=== PATIENT | female | born 1955 | race Caucasian/White ===

== ENCOUNTER 2019-06-11 19:27 | Emergency (ER) | payer MEDICARE, OTHER ==
[~2019-06-11] VITALS: Ht 154.9 cm; Wt 83.9 kg
--- NOTE | 2019-06-11 19:50 | NUR ---
PT PRESENTED TO THE ER WITH A C/O COUGH WITH CONGESTION. PT AMBULATED INTO THE ER WITH A STEADY GAIT. PT HAS A NON PRODUCTIVE COUGH NOTED. WILL CONTINUE TO MONITOR THE PT.
--- NOTE | 2019-06-11 19:57 | NUR ---
RECEIVED CALL FROM PT BROTHER, RICHARD FARMER, STATES PT IS MISSING FROM [facility] AND WOULD LIKE FOR PT TO BE TRANSFERRED BACK IF DISCHARGED. STATES PT HAS HYPERGLYCEMIA AND MAKES POOR DECISIONS WHEN HAS TOO MUCH SUGAR WITH OTHER MEDS SHE IS TAKING. PLEASE CALL FOR UPDATES/STATUS.
[2019-06-11] MEDS ORDERED: OLANZAPINE 5 MG TABLET ONE (20:12)
--- NOTE | 2019-06-11 20:16 | NUR ---
SHEBA REYNOSO. ([facility]) ([phone]
--- NOTE | 2019-06-11 20:16 | NUR ---
PT AMBUALTED TO THE BATHROOM WITH A STEADY GAIT. PT IS TRYING TO GIVE A URINE SAMPLE.
[2019-06-11] MEDS: OLANZAPINE 5 MG TABLET PO ONE (20:22)
--- NOTE | 2019-06-11 20:22 | NUR ---
ANDERS IS AT THE BEDSIDE FOR BLOOD DRAW. EKG IN PROGRESS AT THE BEDSIDE.
[2019-06-11 20:27] LABS: BASOPHILS % (AUTO) 0.7 % (0.0-2.0); EOSINOPHILS % (AUTO) 2.5 % (0.0-6.0); HEMATOCRIT 34 % (33-45); HEMOGLOBIN 11.5 g/dL (11.5-14.8); LYMPHOCYTES # (AUTO) 1.4 /CMM (0.8-4.8); LYMPHOCYTES % (AUTO) 21.8 % (20.0-44.0); MEAN CORPUSCULAR HGB CONC 34 g/dl (31.0-36.0); MEAN CORPUSCULAR VOLUME 86 fL (82-100); MONOCYTES # (AUTO) 0.6 /CMM (0.1-1.30); MONOCYTES % (AUTO) 9.3 % (2.0-12.0); NEUTROPHILS # (AUTO) 4.2 /CMM (1.8-8.9); NEUTROPHILS % (AUTO) 65.7 % (43.0-81.0); PLATELET COUNT (AUTO) 214 /CMM (150-450); RED BLOOD CELL COUNT(AUTO) 3.97 MIL/uL (4.0-5.2); WHITE BLOOD COUNT (AUTO) 6.4 K/uL (4.3-11.0)
[2019-06-11 20:44] LABS: CALCIUM, SERUM 8.5 mg/dL (8.5-10.1); CREATININE 0.9 mg/dL (0.6-1.3); POTASSIUM 4.3 mmol/L (3.5-5.1)
[2019-06-11 20:49] LABS: BILIRUBIN,TOTAL 0.2 mg/dL (0.2-1.0); TOTAL PROTEIN, SERUM 6.5 g/dL (6.4-8.2)
[2019-06-11 20:51] LABS: SALICYLATE 1.1 mg/dL (2.8-20.0)
[2019-06-11 21:03] LABS: APPEARANCE,URINE Clear (CLEAR); BILIRUBIN,URINE Negative (NEGATIVE); BLOOD, URINE Negative Ery/uL (NEGATIVE); COLOR,URINE Yellow (YELLOW); KETONES,URINE Negative (NEGATIVE); LEUKOCYTE ESTERASE ,URINE Small (NEGATIVE); NITRITE, URINE Negative (NEGATIVE); PH,URINE 5.5 (5.0-8.0); PROTEIN,URINE Negative (NEGATIVE); UGLUCOSE Negative (NEGATIVE); UROBILINOGEN,URINE 0.2 EU/dL (0.2)
--- NOTE | 2019-06-11 21:17 | NUR ---
PT WAS EVALUATED BY [facility]ON. CLAM BED WORKER FROM [facility] WILL COME TO PATENT DRAFTER THE PT IN 1.5HRS.
[2019-06-11 21:25] LABS: BACTERIA,URINE Moderate /HPF (None Seen); RBC,URINE 0-2 /HPF (0-2)
[2019-06-11 21:26] LABS: SQUAMOUS EPITHELIAL CELL,UR Few /HPF (None Seen)
--- NOTE | 2019-06-11 23:11 | NUR ---
Patient discharged to home in stable condition. Written and verbal after care instructions given. Patient verbalizes understanding of instruction AND RX. PT AMBULATED OUT WITH A STEADY GAIT. VSS.
[2019-06-11 23:12] VITALS: BP 145/81
--- NOTE | 2019-06-11 23:13 | NUR ---
CAREGIVERS FROM [facility] ARRIVED AND TOOK PT BACK TO THE [facility].
== END 2019-06-11 23:12 | disposition home or self-care (01) ==
LOC: ER 19:35
DX: J22 Unspecified acute lower respiratory infection (principal); I10 Essential (primary) hypertension
CPT/HCPCS: 36415; 71045; 80048; 80076; 80305; 80307; 80329; 81001; 85025; 87086; 93005; 99284; G0480; 81000-TC